=== PATIENT | female | born 1985 | race Caucasian/White ===

== ENCOUNTER 2023-10-07 06:50 | Outpatient (RCR) | payer OTHER, SELFPAY | END 2023-10-07 23:59 | disposition home or self-care (01) | LOC: RPT 06:50 | PROVIDERS: ATTENDING PHYSICIAN Obstetrics & Gynecology; FAMILY PHYSICIAN Physician Assistant Medical | DX: R39.15 Urgency of urination (principal); Z73.6 Limitation of activities due to disability | CPT/HCPCS: 97163; 97530 ==

== ENCOUNTER 2023-11-04 10:02 | Outpatient (RCR) | payer OTHER, SELFPAY | END 2023-11-04 23:59 | disposition home or self-care (01) | LOC: RPT 10:02 | PROVIDERS: ATTENDING PHYSICIAN Obstetrics & Gynecology; FAMILY PHYSICIAN Physician Assistant Medical | DX: R39.15 Urgency of urination (principal); Z73.6 Limitation of activities due to disability | CPT/HCPCS: 97110; 97112; 97530 ==

== ENCOUNTER 2023-11-18 10:01 | Outpatient (RCR) | payer OTHER, SELFPAY | END 2023-11-18 23:59 | disposition home or self-care (01) | LOC: RPT 10:01 | PROVIDERS: ATTENDING PHYSICIAN Obstetrics & Gynecology; FAMILY PHYSICIAN Physician Assistant Medical | DX: R39.15 Urgency of urination (principal); Z73.6 Limitation of activities due to disability | CPT/HCPCS: 97110; 97112; 97530 ==

== ENCOUNTER → 2024-01-06 08:51 | Outpatient (REF) | payer OTHER, SELFPAY | LOC: HWRAD 08:51 | PROVIDERS: ATTENDING PHYSICIAN Family Medicine | DX: M54.9 Dorsalgia, unspecified (principal); M41.35 Thoracogenic scoliosis, thoracolumbar region; Z87.442 Personal history of urinary calculi | CPT/HCPCS: 76770 ==

== ENCOUNTER → 2024-01-08 08:50 | Outpatient (REF) | payer OTHER, SELFPAY | LOC: HWRAD 08:50 | PROVIDERS: ATTENDING PHYSICIAN Obstetrics & Gynecology Gynecology; FAMILY PHYSICIAN Physician Assistant Medical | DX: R19.00 Intra-abdominal and pelvic swelling, mass and lump, unspecified site (principal) | CPT/HCPCS: 76830; 76856 ==

== ENCOUNTER → 2024-02-04 08:58 | Outpatient (REF) | payer OTHER, SELFPAY | LOC: HWRAD 08:58 | PROVIDERS: ATTENDING PHYSICIAN Specialist; FAMILY PHYSICIAN Physician Assistant Medical | DX: N13.2 Hydronephrosis with renal and ureteral calculous obstruction (principal) | CPT/HCPCS: 74178; Q9967 ==

== ENCOUNTER → 2024-06-06 07:52 | Outpatient (REF) | payer OTHER, SELFPAY | LOC: HWWDC 07:52 | PROVIDERS: ATTENDING PHYSICIAN Obstetrics & Gynecology Gynecology; FAMILY PHYSICIAN Physician Assistant Medical | DX: Z12.31 Encounter for screening mammogram for malignant neoplasm of breast (principal) | CPT/HCPCS: 77063; 77067 ==

== ENCOUNTER 2024-12-21 17:35 | Emergency (ER) | payer OTHER, SELFPAY ==
[2024-12-21 17:37] VITALS: BP 136/93
--- NOTE | 2024-12-21 19:03 | ED.GENMED ---
History of Present Illness
General
Chief Complaint: Musculo-Skeletal Complaint
Source: patient
Time Seen by Provider: 12/21/24 18:26
History of Present Illness
History of Present Illness:
39-year-old female presenting to the emergency department for evaluation after she tripped and injured her right lateral foot earlier today, now with pain, edema and trouble ambulating secondary to the pain. No other injury sustained. Denies any
previous history of injury or surgery.
Past History
Past History
ED Past Medical History: Other (Kidney stones)
ED Past Surgical History: Urological
Social History
Tobacco: Non-smoker
Alcohol: Occasional
Drug: None
Personal:
Living: with family
Review of Systems
Review of Systems
All Other Systems: ROS reviewed and negative except as documented in HPI and ROS
Phy Exam
Physical Exam
Physical Exam:
GENERAL: Alert , in no apparent distress
EYE: conjunctiva clear
Head: Normocephalic atraumatic
NECK: Supple,
ENT: mmm.
LUNGS: no acute respiratory distress
NEUROLOGICAL: Alert and oriented
SKIN: Warm and dry, skin intact.
MUSCULOSKELETAL: Right lower extremity: Pain, soft tissue swelling and tenderness over the proximal fifth metatarsal. Extremities otherwise warm well-perfused, neurovascularly intact. No proximal tib-fib tenderness. No ankle tenderness.
PSYCH: Normal and appropriate interaction.
Scores
Heart Failure Risk
Heart Failure Risk Score: Not Applicable
Heart Score for Chest Pain Patients
STEMI patient?: Not applicable
Withdrawal Assessment of Alcohol
Withdrawal Assessment Completed?: Not applicable
Course
Orders/Labs/Results
Orders:
Orders
12/21/24 17:41
CR Ankle - Right Min 3 Views * Urgent
Comment:
Reason For Exam: fall, injury
CR Foot - Right Min 3 Views Urgent
Comment:
Reason For Exam: fall, inury
Vital Signs
Initial and Last Documented VS:
Initial Vital Signs
Temp Pulse Resp BP Pulse Ox
98.6 F 86 18 136/93 98
12/21/24 17:37 12/21/24 17:37 12/21/24 17:37 12/21/24 17:37 12/21/24 17:37
Last Documented Vital Signs
Temp Pulse Resp BP Pulse Ox
98.6 F 86 18 136/93 98
12/21/24 17:37 12/21/24 17:37 12/21/24 17:37 12/21/24 17:37 12/21/24 17:37
MDM/Problems Addressed
Differential Diagnosis Includes:
Sprain, contusion, fracture
MDM/Problems Addressed:
39-year-old female presenting to the emergency department for evaluation of right foot pain following an accidental trip and fall. Patient had x-rays of the right foot and ankle ordered in triage which ultimately reveals a 5th metatarsal fracture.
Patient will be placed in orthopedic boot and advised to be nonweightbearing until follow-up with orthopedist. NSAIDs/Tylenol as needed for pain. Info for Ortho provided. Stable for discharge home.
*Radiology
Radiology exam reviewed: preliminary read by ED provider (Fifth metatarsal fracture)
*Pulse Oximetry
Patient hypoxic: no
*Critical Care Note
Total Time (30-74mins, 75-104mins- exclusive of procedures): Not Applicable
ED Attending Note
-
Portions of this chart may have been created with voice recognition software.� Occasional wrong word or��sound alike� substitutions may have occurred due to the inherent limitations of voice recognition software.
Discharge Plan
Departure
Patient Disposition: Home (Routine Discharge)
Date of Disposition: 12/21/24
Time of Disposition: 19:03
Patient with high blood pressure during this ER visit?: Yes
Discharge Problem:
Fracture of fifth metatarsal bone of right foot
Instructions: Foot Fracture ED
Prescriptions:
No Action
multivitamin [Daily Multiple] 1 EACH tablet
1 ea PO DAILY
acetaminophen 325 MG tablet
650 mg PO Q4HPRN PRN (Reason: mild pain) 0RF
ibuprofen 600 MG tablet
600 mg PO Q4HPRN PRN (Reason: moderate pain/cramps) 0RF
Referrals:
Brooklyn Terry PA-C [Family Provider] -
Rohan Sanchez DPM [Active] - (Please call for appointment)
Interventions
Interventions:
*Risk Screen - Suicide Last Done: 12/21/24 17:37
*General Assessment Last Done: 12/21/24 18:06
*Neglect/Abuse Screening Last Done: 12/21/24 17:37
*ED COVID-19 Vaccine History Last Done: 12/21/24 17:37
ED-Musculoskeletal Assessment Last Done: 12/21/24 18:06
Discharge Date and Time
Print Language: [place]
== END 2024-12-21 19:27 | disposition home or self-care (01) ==
LOC: EMR 17:35
PROVIDERS: EMERGENCY PHYSICIAN Emergency Medicine; FAMILY PHYSICIAN Physician Assistant Medical
DX: S92.351A Displaced fracture of fifth metatarsal bone, right foot, initial encounter for closed fracture (principal); W19.XXXA Unspecified fall, initial encounter; Z87.442 Personal history of urinary calculi
CPT/HCPCS: 99283; 73610; 73630

== ENCOUNTER → 2025-04-04 07:53 | Outpatient (REF) | payer OTHER, SELFPAY | LOC: HWRAD 07:53 | PROVIDERS: ATTENDING PHYSICIAN Obstetrics & Gynecology; FAMILY PHYSICIAN Physician Assistant Medical | DX: R10.2 Pelvic and perineal pain (principal) | CPT/HCPCS: 76830; 76856 ==

== ENCOUNTER → 2025-04-27 08:02 | Outpatient (REF) | payer OTHER, SELFPAY | LOC: HWRAD 08:02 | PROVIDERS: ATTENDING PHYSICIAN Specialist; FAMILY PHYSICIAN Physician Assistant Medical | DX: N13.2 Hydronephrosis with renal and ureteral calculous obstruction (principal) | CPT/HCPCS: 74176 ==

== ENCOUNTER → 2025-06-07 07:58 | Outpatient (REF) | payer OTHER, SELFPAY | LOC: HWWDC 07:58 | PROVIDERS: ATTENDING PHYSICIAN Obstetrics & Gynecology Gynecology; FAMILY PHYSICIAN Physician Assistant Medical | DX: Z12.31 Encounter for screening mammogram for malignant neoplasm of breast (principal) | CPT/HCPCS: 77063; 77067 ==

== ENCOUNTER → 2025-08-21 10:22 | Outpatient (REF) | payer OTHER, SELFPAY | LOC: RAD 10:22 | PROVIDERS: ATTENDING PHYSICIAN Physician Assistant Medical | DX: M54.50 Low back pain, unspecified (principal) | CPT/HCPCS: 72110 ==

== ENCOUNTER → 2025-08-22 09:52 | Outpatient (REF) | payer OTHER, SELFPAY | LOC: WDC 09:52 | PROVIDERS: ATTENDING PHYSICIAN Obstetrics & Gynecology Gynecology; FAMILY PHYSICIAN Physician Assistant Medical | DX: R92.333 Mammographic heterogeneous density, bilateral breasts (principal) | CPT/HCPCS: 76641 ==